=== PATIENT | female | born 1935 | race Caucasian/White ===

== ENCOUNTER 2018-11-05 09:47 | Emergency (ER) | payer MEDICARE, OTHER ==
[~2018-11-05] VITALS: Ht 165.1 cm; Wt 81.8 kg
[2018-11-05 10:02] VITALS: Ht 165.1 cm; Wt 81.8 kg
[2018-11-05] MEDS ORDERED: SOD CHLORIDE 0.9% 1,000 ML IV STA (10:08)
[2018-11-05] MEDS ORDERED: AMLO-147 PO (11:12)
[2018-11-05] MEDS ORDERED: AZITHROMYCIN 250 MG TAB PO STA (11:51)
[2018-11-05] MEDS ORDERED: CEFTRIAXONE 1 GM/50 ML (PMX) 50 ML IVPB STA (11:51)
[2018-11-05] MEDS ORDERED: LORAZEPAM 2 MG INJ IV ONE ×2 (12:00→17:00)
--- NOTE | 2018-11-05 14:09 | ERD ---
ER Documentation Chief Complaint Chief Complaint altered and shakey at the facility HPI This is an 83-year-old female presented to the emergency department from an assisted living facility. She was sent to the emergency department for changes in her mental status. She appeared more confused. She started to become very shaky. The patient had no recent fever shaking or chills. The patient has not complained of any recent headaches. She denies any fevers or shaking no chills. When reviewing the patient's medication list she does have a known history of GERD hypertension depression hyperlipidemia and overactive bladder. ROS All systems reviewed and are negative except as per history of present illness. Medications Home Meds Discontinued Reported Medications Amlodipine Besylate* (Amlodipine Besylate*) 10 Mg Tablet, 10 MG PO DAILY, #30 TAB 11/05/18 Allergies Allergies: Coded Allergies: No Known Allergy (Unverified , 11/05/18) Physical Exam Vitals Vital Signs Date Temp Pulse Resp B/P (MAP) Pulse Ox O2 O2 Flow FiO2 Time Delivery Rate 11/05/18 71 17 145/72 95 Room Air 11:57 (96) 11/05/18 98.1 82 18 124/68 97 10:02 (86) Physical Exam Constitutional:Well-developed. Well-nourished. HEENT:Normocephalic. Atraumatic.Pupils were equal round reactive to light. Moist mucous membranes.No tonsillar exudates. Neck: No nuchal rigidity. No lymphadenopathy. No posterior cervical spine tenderness or step-offs. Respiratory: Not using accessory muscles of respiration.Lungs were clear to auscultation on the left with slightly decreased breath sounds in the right lower lung no rhonchi. No rales. Mild wheezing Cardiovascular: Regular rate regular rhythm.No murmurs. No rubs were appreciated.S1, S2 normal. Distal pulses are palpable 2+ bilaterally. GI: Abdomen was soft. Nontender. Non Distended. No pulsatile abdominal masses or bruits. No rebound. No guarding. Bowel sounds were present and normal. Muscle skeletal: Full range of motion of both the upper extremities. Muscular strength 2 out of 5 in the bilateral lower extremities Skin: No petechia, no purpura. No lesions on the palms or the soles of the feet. No maculopapular rash. NEURO: Patient was alert, awake, to person place but not to time. This is the patient's baseline. Gait was not observed as patient does not ambulate without assistance. Result Diagram: 11/05/18 1050 11/05/18 1051 Results 24 hrs Laboratory Tests Test 11/05/18 10:50 11/05/18 10:51 White Blood Count 8.1 10^3/ul Red Blood Count 3.70 10^6/ul Hemoglobin 11.8 g/dl Hematocrit 36.1 % Mean Corpuscular Volume 97.6 fl Mean Corpuscular Hemoglobin 31.9 pg Mean Corpuscular Hemoglobin Concent 32.7 g/dl Red Cell Distribution Width 14.2 % Platelet Count 343 10^3/UL Mean Platelet Volume 10.1 fl Immature Granulocytes % 0.200 % Neutrophils % 54.9 % Lymphocytes % 33.5 % Monocytes % 10.4 % Eosinophils % 0.4 % Basophils % 0.6 % Nucleated Red Blood Cells % 0.0 /100WBC Immature Granulocytes # 0.020 10^3/ul Neutrophils # 4.4 10^3/ul Lymphocytes # 2.7 10^3/ul Monocytes # 0.8 10^3/ul Eosinophils # 0.0 10^3/ul Basophils # 0.1 10^3/ul Nucleated Red Blood Cells # 0.0 10^3/ul Prothrombin Time 12.7 Sec Prothrombin Time Ratio 1.0 INR International Normalized Ratio 0.94 Activated Partial Thromboplast Time 27.5 Sec Sodium Level 143 mmol/L Potassium Level 3.5 mmol/L Chloride Level 106 mmol/L Carbon Dioxide Level 26 mmol/L Anion Gap 11 Blood Urea Nitrogen 9 mg/dl Creatinine 0.71 mg/dl Est Glomerular Filtrat Rate mL/min mL/min Glucose Level 116 mg/dl Calcium Level 9.8 mg/dl Total Bilirubin 0.5 mg/dl Direct Bilirubin 0.00 mg/dl Indirect Bilirubin 0.5 mg/dl Aspartate Amino Transf (AST/SGOT) 18 IU/L Alanine Aminotransferase (ALT/SGPT) 15 IU/L Alkaline Phosphatase 63 IU/L Troponin I < 0.012 ng/ml B-Type Natriuretic Peptide 842 PG/ML Total Protein 7.8 g/dl Albumin 4.2 g/dl Globulin 3.60 g/dl Albumin/Globulin Ratio 1.16 Amylase Level 52 U/L Lipase 94 U/L Current Medications Medications Dose Sig/Anatoly Start Time Status Last (Trade) Ordered Route PRN Stop Time Admin Dose Reason Admin Sodium 1,000 ml @ Q1H STAT 11/05/18 DC 11/05/18 Chloride 1,000 mls/hr IV 10:08 11:30 11/05/18 11:07 500 mg ONCE STAT 11/05/18 DC Azithromycin PO 11:51 (Zithromax) 11/05/18 13:21 Ceftriaxone 50 ml @ ONCE STAT 11/05/18 DC 11/05/18 Sodium 100 mls/hr IVPB 11:51 13:48 11/05/18 13:21 Lorazepam 0.5 mg ONCE ONCE 11/05/18 DC (Ativan) IV 12:00 11/05/18 12:01 Procedures/MDM The patient presented to the emergency department with an acute and persistent change in their mental status. The differential diagnosis is diverse however reversible causes such as hypoglycemia, opiate overdose, thiamine deficiency were immediately considered. The patient was placed on a cardiac technician, cont inuous pulse oximetry and IV access was established. The patients airway was secure however hypoxic events such as anemia, shock, or severe pulmonary disease were all considered as etiologies in this patients presentation. Circulation assessed with good cap refill and did not require fluids or pressure support. Finger stick for rapid glucose determined to be normal. I did not appreciate any tremors on physical examination 12 Lead EKG tracing ordered and reviewed by myself showed: Normal sinus rhythm of 72 bpm and no arrhythmia. GA interval normal. QRS duration normal. No ST segment elevation No ST segment depression. No changes consistent with acute ischemia. The patient had no leukocytosis. The patient was afebrile. The patient had mild hypoxia but did not appear to be in severe respiratory distress. I obtained a chest radiograph which showed a possible patchy infiltrate in the right lower lung base. At this time blood cultures were obtained. The patient did receive a dose of IV antibiotics in the emergency department. The patient has known history of congestive heart failure. BNP was 800 and there is no severe respiratory distress or rhonchi or pulmonary vascular congestion that was seen on chest radiograph. I did feel that the patient was to be discharged back to her living facility with continuation of oral antibiotics. The patient was discharged home in fair condition. They were instructed to return to the emergency department at any time if there was any worsening of their condition. The patient stated they would follow up with their PCP in the next 24-48 hours to initiate a suitable medication regimen under the care of their PCP as well as to allow their PCP to monitor any drug reactions. The patient was discharged home with prescriptions after they gave informed consent to the new medication. They were also fully informed by myself on the adverse effects and adverse drug interactions in order to provide adequate safeguards to prevent possible adverse reactions to medications. Departure Diagnosis: Primary Impression: Pneumonia Pneumonia type: due to unspecified organism Laterality: right Lung location: lower lobe of lung Qualified Codes: J18.1 - Lobar pneumonia, unspecified organism Condition: MAURY Ozuna MD Nov 05, 2018 14:09
[2018-11-05] MEDS ORDERED: AZIT250T13 PO (14:11)
[2018-11-05] MEDS ORDERED: DOCU-144 PO (16:26)
[2018-11-05 16:50] VITALS: BP 148/73; PULSE 70; RESP 18
[2018-11-05] MEDS ORDERED: LORAZEPAM 0.5 MG TAB PO ONE (17:00)
== END 2018-11-05 17:00 | disposition home or self-care (01) ==
LOC: E/R 09:47
DX: J18.1 Lobar pneumonia, unspecified organism (principal); I10 Essential (primary) hypertension; R40.2142 Coma scale, eyes open, spontaneous, at arrival to emergency department; R40.2362 Coma scale, best motor response, obeys commands, at arrival to emergency department; R40.2212 Coma scale, best verbal response, none, at arrival to emergency department; R10.9 Unspecified abdominal pain
CPT/HCPCS: 71045; 80053; 81003; 82150; 83690; 83880; 84484; 85025; 85610; 85730; 87040; 87086; 96374; 96375; 99285; J0696; J2060; J7030